=== PATIENT | female | born 1975 | race Caucasian/White ===

== ENCOUNTER 2017-02-21 20:50 | Emergency (ER) | payer MEDICARE, MEDICAID ==
[~2017-02-21] VITALS: Ht 165.1 cm; Wt 63.5 kg
[~2017-02-21 20:50] MED LIST: AMOXICILLIN500 MG PO; ATIVAN1 MG PO; AUGMENTIN 875 M1 TAB PO; BACTRIM DS 8001 TA1 PO; BACTROBAN CREAM15 GM PO; BENTYL10 MG PO; CLARITIN10 MG PO; CLEOCIN150 MG PO; HYDROCODONE BIT1 T11 PO; LATUDA20 MG PO; PRILOSEC20 M1 PO; PRILOSEC20 MG PO; PRILOSEC40 MG PO; TOFRANIL PO; ULTRAM50 MG PO; VICODIN 5/500 505 MG PO; VYVANSE30 MG PO; ZITHROMAX Z PA250 MG PO; ZOFRAN ODT4 MG SL; prilosec PO
[2017-02-21 21:07] VITALS: BP 117/98
[2017-02-21 22:35] LABS: BASO % 0.3 % (0.0-1.0); EOS % 0.2 % (1.0-4.0); HEMATOCRIT 41.6 % (37.0-47.0); HEMOGLOBIN 13.3 g/dl (12.0-16.0); LYMPH # 1.1 10*3/uL (1.3-4.4); LYMPH % 19.6 % (27.0-41.0); MEAN CORPUSCULAR HGB 27.5 pg (27.0-31.0); MEAN PLATELET VOLUME 10.4 fl (9.6-12.3); MONO # 0.5 10*3/uL (0.1-1.0); MONO % 7.8 % (3.0-9.0); NEUT # 4.2 10*3/uL (2.3-7.9); NEUT % 71.9 % (47.0-73.0); PLATELET COUNT AUTOMATED 267 10*3/uL (130-400); RED BLOOD COUNT 4.84 10*6/uL (4.10-5.10); RED CELL DISTRI WIDTH 14.2 % (0-14.5); WHITE BLOOD COUNT 5.8 10*3/uL (4.8-10.8)
[2017-02-21 22:50] LABS: ALBUMIN 4.1 gm/dl (3.1-4.5); ALKALINE PHOSPHATASE 76 U/L (45-117); BILIRUBIN, TOTAL 0.5 mg/dl (0.2-1.0); BUN 17 mg/dl (7-24); CARBON DIOXIDE 31 mmol/L (21-32); CHLORIDE 97 mmol/L (98-107); EST GLOM FILT AFRICAN AMERICAN > 60 ml/min; GLUCOSE 96 mg/dL (65-99); POTASSIUM 3.5 mmol/L (3.5-5.1); SGOT/AST 9 IU/L (3-35); SGPT/ALT 18 U/L (12-78); SODIUM 138 mmol/L (136-145)
[2017-02-21] MEDS ORDERED: Carafate1 GM PO (23:25)
== END 2017-02-21 23:39 | disposition home or self-care (01) ==
LOC: ED 20:50
PROVIDERS: Nurse Practitioner Family
DX: K29.00 Acute gastritis without bleeding (principal); F17.200 Nicotine dependence, unspecified, uncomplicated; Z90.49 Acquired absence of other specified parts of digestive tract; Z79.899 Other long term (current) drug therapy

== ENCOUNTER 2017-05-19 15:32 | Emergency (ER) | payer MEDICARE ==
[~2017-05-19] VITALS: Ht 160 cm; Wt 56.2 kg
[~2017-05-19 15:32] MED LIST changes: +Carafate1 GM PO
[2017-05-19 15:41] VITALS: BP 139/94
[2017-05-19 16:18] LABS: BASO % 0.4 % (0.0-1.0); EOS # 0.3 10*3/uL (0.0-0.4); EOS % 3.4 % (1.0-4.0); HEMATOCRIT 43.7 % (37.0-47.0); HEMOGLOBIN 14.2 g/dl (12.0-16.0); LYMPH # 1.3 10*3/uL (1.3-4.4); LYMPH % 13.2 % (27.0-41.0); MEAN CELL VOLUME 86.2 fl (81.0-99.0); MEAN CORPUSCULAR HGB CONC 32.5 g/dl (33.0-37.0); MEAN PLATELET VOLUME 9.6 fl (9.6-12.3); MONO # 0.7 10*3/uL (0.1-1.0); NEUT # 7.2 10*3/uL (2.3-7.9); NEUT % 75.6 % (47.0-73.0); PLATELET COUNT AUTOMATED 343 10*3/uL (130-400); RED BLOOD COUNT 5.07 10*6/uL (4.10-5.10); RED CELL DISTRI WIDTH 14.6 % (0-14.5); WHITE BLOOD COUNT 9.5 10*3/uL (4.8-10.8)
[2017-05-19 16:35] LABS: ALBUMIN 4.1 gm/dl (3.1-4.5); ALKALINE PHOSPHATASE 90 U/L (45-117); BUN 13 mg/dl (7-24); CHLORIDE 98 mmol/L (98-107); CREATININE 0.76 mg/dL (0.55-1.02); LIPASE 150 U/L (73-393); POTASSIUM 3.2 mmol/L (3.5-5.1); SGOT/AST 12 IU/L (3-35); SGPT/ALT 17 U/L (12-78); SODIUM 138 mmol/L (136-145); TOTAL PROTEIN 8.6 gm/dL (6.4-8.2)
[2017-05-19 18:30] LABS: BILIRUBIN 1+ (NEGATIVE); BLOOD 2+ (NEGATIVE); CLARITY CLEAR (CLEAR); COLOR YELLOW (YELLOW); GLUCOSE NEGATIVE (NEGATIVE); KETONE 1+ (NEGATIVE); LEUKO ESTERASE 3+ (NEGATIVE); NITRITE NEGATIVE (NEGATIVE); PH 8.5 (5.0-9.0); SPECIFIC GRAVITY 1.015 (1.005-1.030)
[2017-05-19 18:38] LABS: BACTERIA 2+; WBC 51-100 wbc/hpf (0-5)
[2017-05-19] MEDS ORDERED: ZANTAC 150150 MG PO (18:53)
[2017-05-19] MEDS ORDERED: AMINOPHYLLIN200 MG PO (19:18)
== END 2017-05-19 19:10 | disposition home or self-care (01) ==
LOC: ED 15:32
PROVIDERS: Physician Assistant
DX: N39.0 Urinary tract infection, site not specified (principal); R31.9 Hematuria, unspecified; R10.13 Epigastric pain; F17.200 Nicotine dependence, unspecified, uncomplicated; Z79.899 Other long term (current) drug therapy; Z90.49 Acquired absence of other specified parts of digestive tract

== ENCOUNTER 2017-05-28 21:27 | Emergency (ER) | payer MEDICARE ==
[~2017-05-28] VITALS: Wt 56.2 kg
[~2017-05-28 21:27] MED LIST changes: +AMINOPHYLLIN200 MG PO; +ZANTAC 150150 MG PO
[2017-05-28 21:29] VITALS: BP 131/95
[2017-05-28] MEDS ORDERED: CEPHALEXIN500 M1 PO (23:04)
== END 2017-05-28 23:11 | disposition home or self-care (01) ==
LOC: ED 21:27
DX: S61.210A Laceration without foreign body of right index finger without damage to nail, initial encounter (principal); F17.200 Nicotine dependence, unspecified, uncomplicated; Z98.51 Tubal ligation status; Z98.890 Other specified postprocedural states; Z90.49 Acquired absence of other specified parts of digestive tract; Z79.899 Other long term (current) drug therapy; W26.0XXA Contact with knife, initial encounter; Y93.89 Activity, other specified; Y92.89 Other specified places as the place of occurrence of the external cause; Y99.9 Unspecified external cause status

== ENCOUNTER 2017-06-09 22:57 | Emergency (ER) | payer MEDICARE ==
[~2017-06-09] VITALS: Ht 160 cm; Wt 50.3 kg
[~2017-06-09 22:57] MED LIST changes: +CEPHALEXIN500 M1 PO
[2017-06-09 23:47] LABS: BASO % 0.5 % (0.0-1.0); EOS # 0.1 10*3/uL (0.0-0.4); EOS % 0.7 % (1.0-4.0); HEMATOCRIT 45.2 % (37.0-47.0); HEMOGLOBIN 14.8 g/dl (12.0-16.0); LYMPH # 1.3 10*3/uL (1.3-4.4); LYMPH % 15.2 % (27.0-41.0); MEAN CELL VOLUME 85.8 fl (81.0-99.0); MEAN CORPUSCULAR HGB 28.1 pg (27.0-31.0); MEAN CORPUSCULAR HGB CONC 32.7 g/dl (33.0-37.0); MEAN PLATELET VOLUME 10.6 fl (9.6-12.3); MONO # 0.5 10*3/uL (0.1-1.0); MONO % 6.2 % (3.0-9.0); NEUT # 6.5 10*3/uL (2.3-7.9); NEUT % 76.9 % (47.0-73.0); PLATELET COUNT AUTOMATED 337 10*3/uL (130-400); RED BLOOD COUNT 5.27 10*6/uL (4.10-5.10); RED CELL DISTRI WIDTH 14.2 % (0-14.5); WHITE BLOOD COUNT 8.5 10*3/uL (4.8-10.8)
[2017-06-10 00:04] LABS: ALBUMIN 4.5 gm/dl (3.1-4.5); ALKALINE PHOSPHATASE 86 U/L (45-117); BUN 18 mg/dl (7-24); CHLORIDE 97 mmol/L (98-107); CREATININE 0.74 mg/dL (0.55-1.02); LIPASE 105 U/L (73-393); POTASSIUM 4.1 mmol/L (3.5-5.1); SGOT/AST 15 IU/L (3-35); SGPT/ALT 15 U/L (12-78); SODIUM 138 mmol/L (136-145); TOTAL PROTEIN 9.1 gm/dL (6.4-8.2)
[2017-06-10 01:46] VITALS: BP 125/80
[2017-06-10 01:46] LABS: BILIRUBIN NEGATIVE (NEGATIVE); BLOOD NEGATIVE (NEGATIVE); CLARITY SL CLOUDY (CLEAR); COLOR YELLOW (YELLOW); GLUCOSE NEGATIVE (NEGATIVE); KETONE 2+ (NEGATIVE); LEUKO ESTERASE NEGATIVE (NEGATIVE); NITRITE NEGATIVE (NEGATIVE); PH >= 9.0 (5.0-9.0)
[2017-06-10 01:53] LABS: BACTERIA 1+; WBC 0-2 wbc/hpf (0-5)
[2017-06-10] MEDS ORDERED: ZOFRAN ODT4 MG SL (02:06)
[2017-06-10] MEDS ORDERED: ZANTAC 150150 MG PO (02:06)
== END 2017-06-10 02:20 | disposition home or self-care (01) ==
LOC: ED 22:57
PROVIDERS: Physician Assistant
DX: R11.2 Nausea with vomiting, unspecified (principal); R10.10 Upper abdominal pain, unspecified; F17.200 Nicotine dependence, unspecified, uncomplicated; Z79.899 Other long term (current) drug therapy; Z98.890 Other specified postprocedural states; Z90.49 Acquired absence of other specified parts of digestive tract

== ENCOUNTER → 2017-06-25 | Outpatient (CLI) | payer MEDICARE | END | disposition home or self-care (01) | LOC: CT 12:54 | DX: R91.8 Other nonspecific abnormal finding of lung field (principal); R19.00 Intra-abdominal and pelvic swelling, mass and lump, unspecified site ==

== ENCOUNTER → 2019-05-19 | Outpatient (CLI) | payer MEDICARE | END | disposition home or self-care (01) | LOC: CT 10:00 | DX: R22.2 Localized swelling, mass and lump, trunk (principal) ==

== ENCOUNTER 2019-07-03 22:02 | Inpatient (IN) | payer MEDICARE ==
[~2019-07-03] VITALS: Ht 152.4 cm; Wt 51.0 kg
[~2019-07-03 22:02] MED LIST changes: +LATU60TA PO; -LATUDA20 MG PO
[2019-07-03 22:06] VITALS: BP 95/68
[2019-07-03 22:52] LABS: BASO # 0.1 10*3/uL (0.0-0.1); BASO % 0.4 % (0.0-1.0); EOS # 0.2 10*3/uL (0.0-0.4); EOS % 1.1 % (1.0-4.0); HEMATOCRIT 30.3 % (37.0-47.0); HEMOGLOBIN 9.4 g/dl (12.0-16.0); LYMPH # 2.3 10*3/uL (1.3-4.4); LYMPH % 15.8 % (27.0-41.0); MEAN CELL VOLUME 99.3 fl (81.0-99.0); MEAN CORPUSCULAR HGB 30.8 pg (27.0-31.0); MEAN PLATELET VOLUME 9.9 fl (9.6-12.3); MONO # 1.1 10*3/uL (0.1-1.0); MONO % 7.1 % (3.0-9.0); NEUT % 74.7 % (47.0-73.0); PLATELET COUNT AUTOMATED 294 10*3/uL (130-400); RED BLOOD COUNT 3.05 10*6/uL (4.10-5.10); RED CELL DISTRI WIDTH 12.7 % (0-14.5); WHITE BLOOD COUNT 14.7 10*3/uL (4.8-10.8)
--- NOTE | 2019-07-03 22:53 | NUR ---
STOOL OCCULT GUIAC POSITIVE.
[2019-07-03 23:08] LABS: ALBUMIN 3.3 gm/dl (3.1-4.5); ALKALINE PHOSPHATASE 48 U/L (45-117); BUN 76 mg/dl (7-24); CHLORIDE 108 mmol/L (98-107); LIPASE 83 U/L (73-393); POTASSIUM 3.6 mmol/L (3.5-5.1); SGOT/AST 14 IU/L (3-35); SGPT/ALT 19 U/L (12-78); SODIUM 140 mmol/L (136-145); TOTAL PROTEIN 6.2 gm/dL (6.4-8.2)
--- NOTE | 2019-07-03 23:44 | NUR ---
1 ATTEMPT TO INSERT NG TUBE AT THIS TIME. PATIENT FLAILING AND UNABLE TO CONTINUE WITH NG TUBE INSERTION. OFFERED MULTIPLE TIMES TO RETRY TO INSERT NG TUBE, PATIENT REFUSED. SECOND RN WITNESSED AT THIS TIME. DR CARTER AWARE.
[2019-07-04] VITALS (19 sets, daily range): BP systolic 94–117; BP diastolic 60–74
--- NOTE | 2019-07-04 00:35 | NUR ---
A 43, admitted to 4E, under the services of BEULAH Das DO with a diagnosis of GI BLEED ANEMIA. Chief complaint is PROJECTILE EMESIS, DARK STOOL, WEAKNESS. Patient arrived via stretcher from ER. Monitor applied. Initial assessment completed. Vital signs taken and recorded. BEULAH DAS DO notified of admission to the unit. Orders received. See assessment for past medical history, medications and allergies. Patient and/or family oriented to unit. Clothing/patient valuable form completed. LAVERN SMITH
[2019-07-04] MEDS ORDERED: PEPCID20 MG PO (00:58)
--- NOTE | 2019-07-04 02:40 | NUR ---
PT PLACED ON OCEAN FREIGHT MANAGER PER ORDER.
[2019-07-04 06:17] LABS: BASO % 0.5 % (0.0-1.0); EOS # 0.2 10*3/uL (0.0-0.4); EOS % 1.8 % (1.0-4.0); HEMATOCRIT 27.9 % (37.0-47.0); HEMOGLOBIN 8.6 g/dl (12.0-16.0); LYMPH # 2.6 10*3/uL (1.3-4.4); LYMPH % 29.7 % (27.0-41.0); MEAN CELL VOLUME 97.2 fl (81.0-99.0); MEAN CORPUSCULAR HGB CONC 30.8 g/dl (33.0-37.0); MEAN PLATELET VOLUME 9.6 fl (9.6-12.3); MONO # 0.5 10*3/uL (0.1-1.0); MONO % 5.9 % (3.0-9.0); NEUT # 5.4 10*3/uL (2.3-7.9); NEUT % 61.5 % (47.0-73.0); PLATELET COUNT AUTOMATED 243 10*3/uL (130-400); RED BLOOD COUNT 2.87 10*6/uL (4.10-5.10); RED CELL DISTRI WIDTH 12.6 % (0-14.5); WHITE BLOOD COUNT 8.7 10*3/uL (4.8-10.8)
[2019-07-04 06:39] LABS: ALKALINE PHOSPHATASE 43 U/L (45-117); CHLORIDE 112 mmol/L (98-107); CREATININE 0.69 mg/dL (0.55-1.02); POTASSIUM 3.7 mmol/L (3.5-5.1); SGOT/AST 10 IU/L (3-35); SGPT/ALT 18 U/L (12-78); SODIUM 142 mmol/L (136-145); TOTAL PROTEIN 5.7 gm/dL (6.4-8.2)
[2019-07-04 06:42] LABS: BUN 53 mg/dl (7-24)
--- NOTE | 2019-07-04 07:45 | NUR ---
ASSESSMENT COMPLETED AND DOCUMENTED. PT LETHARGIC. DIAPHORETIC. DENIES SOB. DENIES ABDOMINAL PAIN. NO FURTHER BLACK STOOLS AT THIS TIME. LAST BLACK STOOL NOTED LAST NIGHT. NO ACTIVE/BRIGHT RED BLOOD NOTED AT THIS TIME.
--- NOTE | 2019-07-04 08:15 | NUR ---
PT DENIES DIZZINESS, BUT FEELS TOO WEAK TO STAND FOR ORTHOSTATIC BP'S AT THIS TIME.
--- NOTE | 2019-07-04 08:17 | NUR ---
ASSESSMENT COMPLETED AND PATIENT SLEEPING AT THIS TIME Boris CHRISTENSEN
--- NOTE | 2019-07-04 08:20 | NUR ---
PT LETHARGIC. BP 100/68. DR JOSHUA NOTIFIED. NEW ORDERS RECEIVED FOR STAT CBC, TRANSFUSE 1 UNIT PRBC, ORDER [address] ON HOLD.
[2019-07-04 08:49] LABS: BASO # 0.1 10*3/uL (0.0-0.1); BASO % 0.6 % (0.0-1.0); EOS # 0.2 10*3/uL (0.0-0.4); EOS % 2.1 % (1.0-4.0); HEMATOCRIT 25.5 % (37.0-47.0); HEMOGLOBIN 8.1 g/dl (12.0-16.0); LYMPH # 2.9 10*3/uL (1.3-4.4); LYMPH % 32.4 % (27.0-41.0); MEAN CELL VOLUME 98.5 fl (81.0-99.0); MEAN CORPUSCULAR HGB 31.3 pg (27.0-31.0); MEAN CORPUSCULAR HGB CONC 31.8 g/dl (33.0-37.0); MONO # 0.6 10*3/uL (0.1-1.0); MONO % 6.5 % (3.0-9.0); NEUT # 5.1 10*3/uL (2.3-7.9); NEUT % 57.9 % (47.0-73.0); PLATELET COUNT AUTOMATED 251 10*3/uL (130-400); RED BLOOD COUNT 2.59 10*6/uL (4.10-5.10); RED CELL DISTRI WIDTH 12.9 % (0-14.5); WHITE BLOOD COUNT 8.9 10*3/uL (4.8-10.8)
--- NOTE | 2019-07-04 08:57 | NUR ---
DR JOSHUA NOTIFIED OF REPEAT H&H.
--- NOTE | 2019-07-04 10:00 | NUR ---
PATIENT IN BED RECEIVING BLOOD INFUSION, NO COMPLAINTS AT THIS TIME WILL CONTINUE TO MONITOR KRISTINA CHRISTENSEN
--- NOTE | 2019-07-04 13:00 | NUR ---
PATIENT PLEASANT AND COOPERATIVE, DENIES PAIN AND DISCOMFORT, WILL COMTINUE TO MONITOR CALL LIGHT WITHIN REACH. REPORT GIVEN TO ALEISHA LANDRY SPCC
[2019-07-04 13:05] LABS: BASO # 0.1 10*3/uL (0.0-0.1); BASO % 0.6 % (0.0-1.0); EOS # 0.3 10*3/uL (0.0-0.4); EOS % 3.5 % (1.0-4.0); HEMATOCRIT 29.4 % (37.0-47.0); HEMOGLOBIN 9.6 g/dl (12.0-16.0); LYMPH # 2.4 10*3/uL (1.3-4.4); LYMPH % 30.7 % (27.0-41.0); MEAN CELL VOLUME 96.1 fl (81.0-99.0); MEAN CORPUSCULAR HGB 31.4 pg (27.0-31.0); MEAN CORPUSCULAR HGB CONC 32.7 g/dl (33.0-37.0); MEAN PLATELET VOLUME 9.7 fl (9.6-12.3); MONO # 0.4 10*3/uL (0.1-1.0); MONO % 5.3 % (3.0-9.0); NEUT # 4.7 10*3/uL (2.3-7.9); NEUT % 59.6 % (47.0-73.0); PLATELET COUNT AUTOMATED 218 10*3/uL (130-400); RED BLOOD COUNT 3.06 10*6/uL (4.10-5.10); RED CELL DISTRI WIDTH 13.2 % (0-14.5); WHITE BLOOD COUNT 7.8 10*3/uL (4.8-10.8)
--- NOTE | 2019-07-04 13:16 | NUR ---
DR MAHARAJ CALLED WITH RESULTS OF KUB AND LABS. NEW ORDER RECEIVED FOR EGD TODAY.
[2019-07-04 13:53] LABS: BILIRUBIN NEGATIVE (NEGATIVE); BLOOD NEGATIVE (NEGATIVE); CLARITY CLOUDY (CLEAR); COLOR YELLOW (YELLOW); GLUCOSE NEGATIVE (NEGATIVE); KETONE NEGATIVE (NEGATIVE); LEUKO ESTERASE NEGATIVE (NEGATIVE); NITRITE NEGATIVE (NEGATIVE); SPECIFIC GRAVITY 1.025 (1.005-1.030); UROBILINOGEN 0.2 E.U./dl (0.2-1.0)
[2019-07-04 14:06] LABS: BACTERIA 2+; EPITHELIAL CELLS TNTC; MUCOUS TRACE; RBC 0-2 rbc/hpf (0-2)
--- NOTE | 2019-07-04 18:01 | NUR ---
PT TAKEN TO SURGERY.
--- NOTE | 2019-07-04 19:12 | NUR ---
RECEIVED NEW ORDERS FROM DR MAHARAJ.
--- NOTE | 2019-07-04 19:45 | NUR ---
PATIENT UP FROM SURGERY. RESTING IN BED WITH FAMILY AT BEDSIDE. PATIENT'S STATED THAT HE WAS "NOT HAPPY" THAT THE PATIENT CANNOT EAT ANYTHING BUT CLEAR LIQUIDS BECAUSE "SHE HAS NOT EATEN IN 3 DAYS AND NO ONE HAS DONE ANYTHING." I EXPLAINED THE RATIONALE FOR KEEPING THE PATIENT NPO FOR PROCEDURES AND TOLD HIM THE CAFETERIA WAS CLOSED BUT THAT SHE COULD HAVE JUICES. CALL LIGHT WITHIN REACH.
--- NOTE | 2019-07-04 20:30 | NUR ---
PATIENT REQUESTED NICOTINE PATCH. ORDERS RECIEVED BY DR DURON TO PUT IN FOR NICOTINE 21 MG.
--- NOTE | 2019-07-04 20:49 | NUR ---
NICOTINE PATCH GIVEN EARLY PER PATIENT REQUEST.
[2019-07-05] VITALS: BP 106/56; BP 98/55
--- NOTE | 2019-07-05 01:38 | NUR ---
Patient resting quietly with no c/o discomfort. Respirations easy and regular. Vital signs stable. No overt distress. IVY GUTIERREZ
[2019-07-05 06:43] LABS: BASO % 0.5 % (0.0-1.0); EOS # 0.4 10*3/uL (0.0-0.4); EOS % 7.5 % (1.0-4.0); HEMOGLOBIN 7.5 g/dl (12.0-16.0); LYMPH # 2.3 10*3/uL (1.3-4.4); LYMPH % 39.4 % (27.0-41.0); MEAN CELL VOLUME 95.8 fl (81.0-99.0); MEAN CORPUSCULAR HGB 31.3 pg (27.0-31.0); MEAN CORPUSCULAR HGB CONC 32.6 g/dl (33.0-37.0); MEAN PLATELET VOLUME 9.8 fl (9.6-12.3); MONO # 0.3 10*3/uL (0.1-1.0); MONO % 5.4 % (3.0-9.0); NEUT # 2.7 10*3/uL (2.3-7.9); NEUT % 46.9 % (47.0-73.0); PLATELET COUNT AUTOMATED 161 10*3/uL (130-400); RED CELL DISTRI WIDTH 13.8 % (0-14.5); WHITE BLOOD COUNT 5.8 10*3/uL (4.8-10.8)
[2019-07-05 06:50] LABS: ALBUMIN 2.5 gm/dl (3.1-4.5); ALKALINE PHOSPHATASE 35 U/L (45-117); CHLORIDE 114 mmol/L (98-107); CREATININE 0.47 mg/dL (0.55-1.02); PHOSPHOROUS 2.4 mg/dL (2.5-4.9); POTASSIUM 3.6 mmol/L (3.5-5.1); SGOT/AST 12 IU/L (3-35); SGPT/ALT 17 U/L (12-78); SODIUM 144 mmol/L (136-145); TOTAL PROTEIN 4.8 gm/dL (6.4-8.2)
[2019-07-05 07:04] LABS: BUN 22 mg/dl (7-24)
--- NOTE | 2019-07-05 07:15 | NUR ---
ARRIVED ON SHIFT, INTRODUCED TO PATIENT, WHITE BOARD UPDATED, NO NEEDS VOICED AT THIS TIME. REPORT RECEIVED.
[2019-07-05 08:00] VITALS: BP 100/50
--- NOTE | 2019-07-05 09:29 | NUR ---
Shift chart check completed.
[2019-07-05 12:00] VITALS: BP 104/52
[2019-07-05 16:00] VITALS: BP 100/60
[2019-07-05 20:00] VITALS: BP 102/58
--- NOTE | 2019-07-05 20:00 | NUR ---
PATIENTS CALLED AND WAS CONCERNED ABOUT PT BP. I WENT IN TO THE ROOM AND CHECK THE PTS BP MANUALLY AND GOT 102/58. I LET THE KNOW HER BP WAS FINE HE DEMANDED HE WANTED TO SEE BP AND WOULD BE DOWN. PT SAID SHE FELT FINE AND HAD NO COMPLAINTS. SHE STATED HE IS JUST VERY WORRIED ABOUT HER AND THEY HAVE BEEN TOLD SEVERAL DIFFERENT THINGS. REPSIRATIONS EASY AND REGUKAR CALL LIGHT WITHIN REACH.
--- NOTE | 2019-07-05 20:30 | NUR ---
PTS WAS DOWN AND I TOOK THE PTS BP FOR HIM AND HE WANTED TO SEE IT WITH HIS OWN EYES SO I TOOK IT ON THE MACHINE FOR THE AND IT SHOWED 107/63 AND THE WAS NOW SATIFIED, BUT WANTED TO STAY WITH THE PT TO MONITOR HER. PER BINDER FOLDER OPERATOR IT WAS OK FOR HIM TO STAY IN THE LOBBY.
[2019-07-06] VITALS: BP 98/55
[2019-07-06 06:20] LABS: BASO % 0.8 % (0.0-1.0); EOS # 0.4 10*3/uL (0.0-0.4); EOS % 7.2 % (1.0-4.0); HEMATOCRIT 21.8 % (37.0-47.0); HEMOGLOBIN 7.2 g/dl (12.0-16.0); LYMPH # 1.8 10*3/uL (1.3-4.4); LYMPH % 35.6 % (27.0-41.0); MEAN CELL VOLUME 95.6 fl (81.0-99.0); MEAN CORPUSCULAR HGB 31.6 pg (27.0-31.0); MEAN PLATELET VOLUME 9.9 fl (9.6-12.3); MONO # 0.4 10*3/uL (0.1-1.0); NEUT # 2.5 10*3/uL (2.3-7.9); PLATELET COUNT AUTOMATED 170 10*3/uL (130-400); RED BLOOD COUNT 2.28 10*6/uL (4.10-5.10); RED CELL DISTRI WIDTH 13.5 % (0-14.5); WHITE BLOOD COUNT 5.2 10*3/uL (4.8-10.8)
[2019-07-06 06:38] LABS: CHLORIDE 112 mmol/L (98-107); POTASSIUM 3.1 mmol/L (3.5-5.1); SODIUM 144 mmol/L (136-145)
[2019-07-06 06:45] LABS: ALBUMIN 2.5 gm/dl (3.1-4.5); ALKALINE PHOSPHATASE 41 U/L (45-117); BUN 13 mg/dl (7-24); CREATININE 0.54 mg/dL (0.55-1.02); SGOT/AST 14 IU/L (3-35); SGPT/ALT 18 U/L (12-78); TOTAL PROTEIN 4.8 gm/dL (6.4-8.2)
[2019-07-06 08:00] VITALS: BP 104/60
--- NOTE | 2019-07-06 09:00 | NUR ---
Director Of Institutional Giving in to talk to patient. Patient states lives at home with . There are few steps in the home. Physician: nemesio morrow Pharmacy: [facility] Home health services: none Patient's level of ADLs: INDEPENDENT Patient has working utilities: all working DME: none Follow-up physician's appointment after d/c: will be made by hospitalist nurse director upon discharge Does patient want to access PORTAL?: no Discharge plan discussed with patient, she lives at home with , she is independent in adls and ambulation, she states she will return home when medically stable and denies any home needs, case management will follow. MARTHA GARIBAY
[2019-07-06 12:00] VITALS: BP 119/66
[2019-07-06 13:06] VITALS: BP 118/65
--- NOTE | 2019-07-06 13:25 | NUR ---
blood transufusion started, new iv had to be started d/t leaking, new iv started in right upper arm 22 belkys.
[2019-07-06 13:50] VITALS: BP 106/60
--- NOTE | 2019-07-06 13:54 | NUR ---
NOTIFIED OF PT C/O OF LOWER BACK PAIN, BLOOD TRANSFUSION STOPPED, PER POLICY, VITALS STABLE, PER SHE WILL BE UP TO ASSESS PATIENT
--- NOTE | 2019-07-06 14:15 | NUR ---
PATIENT REQUEST TRANSFER TO [facility] UNDER THE CARE OF PADDY TIMMONS. AND AWARE
[2019-07-06] MEDS ORDERED: Carafate1 GM/10 ML PO (14:55)
[2019-07-06] MEDS ORDERED: PANTOPRAZOLE SO40 MG PO (14:55)
[2019-07-06] MEDS ORDERED: FEROSUL325 MG PO (14:55)
[2019-07-06 16:00] VITALS: BP 104/45
--- NOTE | 2019-07-06 16:29 | NUR ---
RECEIVED CALL FROM DARREN FRETTED INSTRUMENT REPAIRER AT [facility] WHO WANTED ME TO TELL PT THAT THIS WOULD BE A LATERAL TRANSFER AND HER INSURANCE MAY NOT PAY FOR IT. PT STTAES SHE WILL SIGN OUT AMA AND GO TO [facility]. INFORMED RN ON FLOOR AND SHE STATES SHE ILL CALL MD AND SEE IF THEY WOULD DISCHARGE HER. DARREN FROM NOTIFIED.
--- NOTE | 2019-07-06 16:53 | NUR ---
PT LEFT AMA D/T INSURANCE ISSUES AND A LATERAL TRANSFER TO [facility], [facility] AWARE, PER PT SHE IS GOING DIRECTLY TO [facility], PATIENT AWAKE ALERT AND ORINETD ON DISCHARGED VITALS STABLE. TRANSPORTING
== END 2019-07-06 17:38 | disposition left against medical advice (07) | DRG 377 ==
LOC: ED 22:02 → EDHOLD 07-04 00:04 → 4E 07-04 00:04
PROVIDERS: Emergency Medicine; Hospitalist; Internal Medicine; Internal Medicine Gastroenterology; ADMIT Internal Medicine
PROC: 0DB78ZX Excision of Stomach, Pylorus, Via Natural or Artificial Opening Endoscopic, Diagnostic (ICD-10-PCS; principal; 2019-07-04)
PROC: 30233N1 Transfusion of Nonautologous Red Blood Cells into Peripheral Vein, Percutaneous Approach (ICD-10-PCS; principal; 2019-07-04)
DX: K29.71 Gastritis, unspecified, with bleeding (principal); N17.0 Acute kidney failure with tubular necrosis; N39.0 Urinary tract infection, site not specified; E44.1 Mild protein-calorie malnutrition; K31.1 Adult hypertrophic pyloric stenosis; K56.609 Unspecified intestinal obstruction, unspecified as to partial versus complete obstruction; D50.0 Iron deficiency anemia secondary to blood loss (chronic); K21.9 Gastro-esophageal reflux disease without esophagitis; F32.9 Major depressive disorder, single episode, unspecified; F41.9 Anxiety disorder, unspecified; F41.0 Panic disorder [episodic paroxysmal anxiety]; N83.201 Unspecified ovarian cyst, right side; F17.210 Nicotine dependence, cigarettes, uncomplicated; T39.315A Adverse effect of propionic acid derivatives, initial encounter; T39.015A Adverse effect of aspirin, initial encounter; Y92.89 Other specified places as the place of occurrence of the external cause; Z68.21 Body mass index [BMI] 21.0-21.9, adult; Z98.51 Tubal ligation status; Z83.3 Family history of diabetes mellitus; Z79.899 Other long term (current) drug therapy

== ENCOUNTER 2020-01-09 10:53 | Emergency (ER) | payer MEDICARE ==
[~2020-01-09] VITALS: Ht 160 cm; Wt 54.4 kg
[~2020-01-09 10:53] MED LIST changes: +Carafate1 GM/10 ML PO; +FEROSUL325 MG PO; +PANTOPRAZOLE SO40 MG PO; +PEPCID20 MG PO
[2020-01-09 11:07] VITALS: BP 142/98
== END 2020-01-09 11:20 | disposition home or self-care (01) ==
LOC: ED 10:53
DX: S06.0X0A Concussion without loss of consciousness, initial encounter (principal); S01.312A Laceration without foreign body of left ear, initial encounter; S40.022A Contusion of left upper arm, initial encounter; S70.12XA Contusion of left thigh, initial encounter; S70.11XA Contusion of right thigh, initial encounter; M54.2 Cervicalgia; K21.9 Gastro-esophageal reflux disease without esophagitis; Z79.899 Other long term (current) drug therapy; Y08.89XA Assault by other specified means, initial encounter; Y93.89 Activity, other specified; Y92.89 Other specified places as the place of occurrence of the external cause; Y99.8 Other external cause status